=== PATIENT | male | born 1985 | race Caucasian/White ===

== ENCOUNTER 2019-04-01 20:39 | Emergency (ER) | payer SELFPAY ==
[2019-04-01] MEDS ORDERED: dexAMETHasone 10 MG/ML VIAL ONE (21:06)
[2019-04-01] MEDS ORDERED: METOCLOPRAMIDE 10 MG/2mL INJ ONE (21:06)
[2019-04-01] MEDS ORDERED: NA CHLORIDE 0.9% 1,000 ML ONE (21:07)
[2019-04-01] MEDS ORDERED: ONDANSETRON 4 MG/2 ML VIAL ONE (21:07)
[2019-04-01] MEDS ORDERED: DIPHENHYDRAMINE 50 MG/ML VIAL ONE (21:07)
[2019-04-01 21:23] LABS: Absolute Lymphocytes (CBC) 2.3 K/uL (0.7-4.9); Basophils % 0.6 % (0-1.3); Hematocrit 43.4 % (39.6-49.0); Lymphocytes % 31.9 % (15.3-44.8); MPV 10.6 fL (7.6-11.3); RBC Red Blood Cell Count 4.87 M/uL (4.33-5.43)
[2019-04-01 21:29] LABS: Protime INR 0.96
[2019-04-01 21:43] LABS: Magnesium 2.3 mg/dL (1.8-2.4); Potassium 4.2 mmol/L (3.5-5.1)
--- NOTE | 2019-04-01 22:25 | ER ---
Nurse's Notes [facility] Name: Fartun Mcclure Age: 33 yrs Sex: Male : 1985 Arrival Date: 04/01/2019 Time: 20:42 Bed 5 Private MD: Jerry Ohara H Diagnosis: Headache;Elevated blood-pressure reading, without diagnosis of hypertension Presentation: 04/01 20:56 Presenting complaint: Patient states: "Today I went to Urgent care because I have been tr5 having headaches for the past 2-3 weeks and L ear pain. At urgent care I was told that I had high blood pressure. I use to take medicine for my high blood pressure, but stopped taking it because there were too many negative side effects.". Transition of care: patient was not received from another setting of care. Onset of symptoms was April 01, 2019. Risk Assessment: Do you want to hurt yourself or someone else? Patient reports no desire to harm self or others. Initial Sepsis Screen: Does the patient meet any 2 criteria? Systolic BP < 90 mmHg. No. Patient's initial sepsis screen is negative. Does the patient have a suspected source of infection? No. Patient's initial sepsis screen is negative. Care prior to arrival: None. 20:56 Method Of Arrival: Ambulatory tr5 20:56 Acuity: NAFISA 3 tr5 Triage Assessment: 20:59 Headache History: The patient has had previous headaches and this one is similar to tr5 previous episodes. General:. 22:38 General: Appears in no apparent distress. Pain: Also complains of. tr5 Historical: - Allergies: 20:59 No Known Allergies; tr5 - Home Meds: 20:59 None [Active]; tr5 - PMHx: 20:59 Hypertension; tr5 - PSHx: 20:59 Vasectomy; tr5 - Immunization history:: Adult Immunizations up to date. - Social history:: Smoking status: Patient/guardian denies using tobacco, never smoked. - Ebola Screening: : No symptoms or risks identified at this time. Screenin:00 Abuse screen: Denies threats or abuse. Nutritional screening: No deficits noted. tr5 Tuberculosis screening: No symptoms or risk factors identified. Fall Risk None identified. Assessment: 21:00 General: Appears in no apparent distress. Behavior is calm, cooperative. Pain: tr5 Complains of pain in face and left ear. Pain: Pain does not radiate. Pain currently is 5 out of 10 on a pain scale. Quality of pain is described as aching, Pain began 2-3 weeks ago. Neuro: Level of Consciousness is awake, alert, obeys commands, Oriented to person, place, time, situation, Corporate Attorney are equal bilaterally Moves all extremities. Gait is steady. Cardiovascular: Heart tones present Capillary refill < 3 seconds Pulses are all present. Edema is absent. Respiratory: Airway is patent Respiratory effort is even, unlabored, Respiratory pattern is regular, symmetrical. GI: No signs and/or symptoms were reported involving the gastrointestinal system. GI:. : No signs and/or symptoms were reported regarding the genitourinary system. EENT: Ear canal clear on right ear and left ear. Derm: Skin is intact, Skin is dry. Musculoskeletal: Capillary refill < 3 seconds, Range of motion: intact in all extremities. 22:00 Reassessment: Patient and/or family updated on plan of care and expected duration. Pain tr5 level reassessed. Patient is alert, oriented x 3, equal unlabored respirations, skin warm/dry/pink. Patient states symptoms have improved. Vital Signs: 20:59 BP 169 / 115; Pulse 76; Resp 16; Temp 97.9(O); Pulse Ox 99% on R/A; Weight 90.72 kg; tr5 Height 5 ft. 6 in. (167.64 cm); 22:06 BP 135 / 99; Pulse 81; Resp 16; Pulse Ox 100% on R/A; tr5 20:59 Body Mass Index 32.28 (90.72 kg, 167.64 cm) tr5 ED Course: 20:42 Patient arrived in ED. am2 20:42 Jerry Ohara DO is Private Physician. am2 20:47 Michael Clement PA is PHCP. cp 20:47 Tashi Patterson MD is Attending Physician. cp 20:56 Iván Madrid, MARY JANE is Primary Nurse. tr5 20:58 Triage completed. tr5 20:59 Arm band placed on Patient placed. tr5 21:00 Placed in gown. Bed in low position. Call light in reach. home health billing specialist on. Pulse ox tr5 on. NIBP on. 21:09 EKG done, by ED staff. tr5 21:16 Inserted saline lock: 20 gauge in right antecubital area, using aseptic technique. jb5 Blood collected. 21:17 Basic Metabolic Panel Sent. jb5 21:17 CBC with Diff Sent. jb5 21:17 Magnesium Sent. jb5 21:17 PT-INR Sent. jb5 21:[address] via wheelchair. tr5 21:28 CT Head Brain wo Cont In Process Unspecified. EDMS 21:38 Awaiting radiology results. tr5 22:37 No provider procedures requiring assistance completed. IV discontinued. tr5 Administered Medications: 21:10 Drug: NS 0.9% 1000 ml Route: IV; Rate: 1 bolus; Site: right antecubital; tr5 21:12 Drug: Zofran 4 mg Route: IVP; Site: right antecubital; tr5 22:05 Follow up: Response: No adverse reaction tr5 21:15 Drug: Reglan 10 mg Route: IVP; Site: right antecubital; tr5 22:05 Follow up: Response: No adverse reaction; Marked relief of symptoms tr5 21:15 Drug: Decadron - Dexamethasone 10 mg Route: IVP; Site: right antecubital; tr5 22:05 Follow up: Response: No adverse reaction tr5 21:16 Drug: Benadryl 25 mg Route: IVP; Site: right antecubital; tr5 22:05 Follow up: Response: No adverse reaction; Marked relief of symptoms tr5 Outcome: 22:24 Discharge ordered by . brant 22:37 Discharged to home ambulatory. tr5 22:37 Condition: stable 22:37 Discharge instructions given to patient, Instructed on discharge instructions, follow up and referral plans. medication usage, Demonstrated understanding of instructions, follow-up care, medications. 22:38 Patient left the ED. tr5 Signatures: Dispatcher [employer] EDMS Michael Clement PA PA cp Broussard, Jennifer jb5 Alessia Gonzales Tommie, RN RN tr5
--- NOTE | 2019-04-01 22:25 | EDPHYS ---
Physician Documentation [facility] Name: Fartun Mcclure Age: 33 yrs Sex: Male : 1985 Arrival Date: 04/01/2019 Time: 20:42 Bed 5 Private MD: Jerry Ohara H ED Physician Tashi Patterson HPI: 04/01 20:56 This 33 yrs old Male presents to ER via Unassigned with complaints of cp Headache, High Blood Pressure. 20:56 The patient complains of pain to the left occipital area and left base of the skull. cp The patient describes the headache as aching. Onset: The symptoms/episode began/occurred 2 day(s) ago. 20:56 Associated signs and symptoms: Pertinent negatives: altered mental status, dizziness, cp fever, neck stiffness, Photophobia sinus congestion, sinus tenderness, vision changes, weakness. 20:56 Severity of symptoms: in the emergency department the pain a " 5" out of "10". cp 20:56 Patient reports intermittent headaches for past 2-3 weeks that start in back of head. cp Today's headache started 2 days ago. Patient reports history of hypertension in the past but stopping medication due to "side effects". Historical: - Allergies: 20:59 No Known Allergies; tr5 - Home Meds: 20:59 None [Active]; tr5 - PMHx: 20:59 Hypertension; tr5 - PSHx: 20:59 Vasectomy; tr5 - Immunization history:: Adult Immunizations up to date. - Social history:: Smoking status: Patient/guardian denies using tobacco, never smoked. - Ebola Screening: : No symptoms or risks identified at this time. ROS: 21:00 Constitutional: Negative for body aches, chills, fever, poor PO intake. cp 21:00 Eyes: Negative for injury, pain, redness, and discharge. cp 21:00 ENT: Negative for drainage from ear(s), ear pain, sinus congestion, sinus pain, sore throat, difficulty swallowing, difficulty handling secretions. 21:00 Neck: Negative for pain with movement, pain at rest, stiffness. 21:00 Cardiovascular: Negative for chest pain, edema, palpitations. 21:00 Respiratory: Negative for cough, shortness of breath, wheezing. 21:00 Abdomen/GI: Negative for abdominal pain, nausea, vomiting, and diarrhea, black/tarry stool, rectal bleeding. 21:00 Back: Negative for pain at rest, pain with movement, radiated pain. 21:00 : Negative for urinary symptoms. 21:00 Skin: Negative for rash. 21:00 Neuro: Positive for headache, Negative for altered mental status, dizziness, syncope, weakness. 21:00 All other systems are negative. Exam: 21:10 Constitutional: The patient appears in no acute distress, alert, awake, cp non-diaphoretic, non-toxic, well developed, well nourished. 21:10 Head/Face: Normocephalic, atraumatic. Eyes: Pupils equal round and reactive to light, cp extra-ocular motions intact. Lids and lashes normal. Conjunctiva and sclera are non-icteric and not injected. Cornea within normal limits. Periorbital areas with no swelling, redness, or edema. ENT: Nares patent. No nasal discharge, no septal abnormalities noted. Tympanic membranes are normal and external auditory canals are clear. Oropharynx with no redness, swelling, or masses, exudates, or evidence of obstruction, uvula midline. Mucous membranes moist. Neck: Trachea midline, no thyromegaly or masses palpated, and no cervical lymphadenopathy. Supple, full range of motion without nuchal rigidity, or vertebral point tenderness. No Meningismus. Chest/axilla: Normal chest wall appearance and motion. Nontender with no deformity. No lesions are appreciated. Cardiovascular: Regular rate and rhythm with a normal S1 and S2. No gallops, murmurs, or rubs. Normal PMI, no JVD. No pulse deficits. Respiratory: Lungs have equal breath sounds bilaterally, clear to auscultation and percussion. No rales, rhonchi or wheezes noted. No increased work of breathing, no retractions or nasal flaring. Abdomen/GI: Soft, non-tender, with normal bowel sounds. No distension or tympany. No guarding or rebound. No evidence of tenderness throughout. Skin: Warm, dry with normal turgor. Normal color with no rashes, no lesions, and no evidence of cellulitis. Neuro: Awake and alert, GCS 15, oriented to person, place, time, and situation. Cranial nerves II-XII grossly intact. Motor strength 5/5 in all extremities. Sensory grossly intact. Cerebellar exam normal. Normal gait. 21:15 ECG was reviewed by the Attending Physician. cp Vital Signs: 20:59 BP 169 / 115; Pulse 76; Resp 16; Temp 97.9(O); Pulse Ox 99% on R/A; Weight 90.72 kg; tr5 Height 5 ft. 6 in. (167.64 cm); 22:06 BP 135 / 99; Pulse 81; Resp 16; Pulse Ox 100% on R/A; tr5 20:59 Body Mass Index 32.28 (90.72 kg, 167.64 cm) tr5 MDM: 20:52 Patient medically screened. cp 22:10 ED course: Head-CT negative for acute findings. cp 22:23 Data reviewed: vital signs, nurses notes, lab test result(s), EKG, radiologic studies, cp CT scan. 22:23 Differential diagnosis: cluster headache, cerebral vascular accident, intracerebral cp hemorrhage, migraine, neoplasm, subarachnoid bleed, subdural hematoma, tension headache. Test interpretation: by ED physician or midlevel provider: ECG. Counseling: I had a detailed discussion with the patient and/or guardian regarding: the historical points, exam findings, and any diagnostic results supporting the discharge/admit diagnosis, lab results, radiology results, the need for outpatient follow up, a family practitioner, to return to the emergency department if symptoms worsen or persist or if there are any questions or concerns that arise at home. Response to treatment: the patient's symptoms have markedly improved after treatment, and as a result, I will discharge patient. 22:23 ED course: VSS. Blood pressure and headache improved. Will discharge to home for cp continued monitoring. 04/01 20:58 Order name: Basic Metabolic Panel; Complete Time: 21:45 cp 04/01 21:45 Interpretation: Normal except: CL 108; GFR 74. cp 04/01 20:58 Order name: CBC with Diff; Complete Time: 21:45 cp 04/01 21:45 Interpretation: Reviewed. cp 04/01 20:58 Order name: Magnesium; Complete Time: 21:45 cp 04/01 20:58 Order name: PT-INR; Complete Time: 21:45 cp 04/01 20:58 Order name: CT Head Brain wo Cont cp 04/01 20:58 Order name: EKG; Complete Time: 20:59 cp 04/01 20:58 Order name: Cardiac monitoring; Complete Time: 21:03 cp 04/01 20:58 Order name: EKG - Nurse/Tech; Complete Time: 21:09 cp 04/01 20:58 Order name: IV Saline Lock; Complete Time: 21:34 cp 04/01 20:58 Order name: Labs collected and sent; Complete Time: 21:34 cp 04/01 20:58 Order name: O2 Per Protocol; Complete Time: 21:02 cp 04/01 20:58 Order name: O2 Sat Monitoring; Complete Time: 21:02 cp EC:15 Rate is 66 beats/min. Rhythm is regular. [place] interval is normal. QRS interval is normal. cp QT interval is normal. Interpreted by me. Reviewed by me. Administered Medications: 21:10 Drug: NS 0.9% 1000 ml Route: IV; Rate: 1 bolus; Site: right antecubital; tr5 21:12 Drug: Zofran 4 mg Route: IVP; Site: right antecubital; tr5 22:05 Follow up: Response: No adverse reaction tr5 21:15 Drug: Reglan 10 mg Route: IVP; Site: right antecubital; tr5 22:05 Follow up: Response: No adverse reaction; Marked relief of symptoms tr5 21:15 Drug: Decadron - Dexamethasone 10 mg Route: IVP; Site: right antecubital; tr5 22:05 Follow up: Response: No adverse reaction tr5 21:16 Drug: Benadryl 25 mg Route: IVP; Site: right antecubital; tr5 22:05 Follow up: Response: No adverse reaction; Marked relief of symptoms tr5 Disposition: 04/02 04:20 Co-signature as Attending Physician, Tashi Patterson MD I agree with the assessment and kdr plan of care. Disposition: 04/01/19 22:24 Discharged to Home. Impression: Headache, Elevated blood-pressure reading, without diagnosis of hypertension. - Condition is Stable. - Discharge Instructions: General Headache Without Cause, How to Take Your Blood Pressure, [id number], Form - Blood Pressure Record Sheet. - Prescriptions for Fiorinal 50- 325-40 mg Oral Capsule - take 1 capsule by ORAL route every 4 hours As needed - not to exceed 6 capsules per day; 20 capsule. Ibuprofen 800 mg Oral Tablet - take 1 tablet by ORAL route every 8 hours As needed take with food; 30 tablet. - Medication Reconciliation Form, Thank You Letter, Antibiotic Education, Prescription Opioid Use form. - Follow up: Private Physician; When: 2 - 3 days; Reason: Recheck today's complaints. - Problem is new. - Symptoms have improved. Signatures: Dispatcher [employer] EDMS Tashi Patterson MD MD kdr Michael Clement PA PA cp Iván Madrid RN RN tr5 Corrections: (The following items were deleted from the chart) 04/01 22:38 22:24 04/01/2019 22:24 Discharged to Home. Impression: Headache; Elevated tr5 blood-pressure reading, without diagnosis of hypertension. Condition is Stable. Forms are Medication Reconciliation Form, Thank You Letter, Antibiotic Education, Prescription Opioid Use. Follow up: Private Physician; When: 2 - 3 days; Reason: Recheck today's complaints. Problem is new. Symptoms have improved. cp
--- NOTE | 2019-04-02 07:14 | EKG ---
Test Date: 2019-04-01 Test Time: 21:08:14 Embroidery Specialist: KIM MEASUREMENT RESULTS: Intervals: Rate: 66 [place]: 162 QRSD: 92 QT: 378 QTc: 396 [place]: P: 19 [place]: 162 QRS: -5 T: -1 INTERPRETIVE STATEMENTS: Normal sinus rhythm Normal ECG No previous ECG available for comparison Electronically Signed On 04-02-19 07:13:13 CDT by Bacilio Mosley
--- NOTE | 2019-04-02 10:19 | RAD REPORT ---
EXAM DESCRIPTION: CT - Head Brain Wo Cont - 04/02/2019 2:06 am CLINICAL HISTORY: HEADACHE . COMPARISON: None Available. TECHNIQUE: Contiguous axial sections are obtained as per protocol. Sagittal and coronal reformations are submitted Automatic exposure control (AEC), mA and/or kV adjustment by patient size, and/or iterative reconstru ctive technique was used, per departmental dose optimization program, during the performance of the C T examination. FINDINGS: Ventricles, sulci and cisterns appear normal. Normal kwok-white matter differentiation i s noted. No evidence of intra or extra-axial hemorrhage, hematoma, mass, mass effect or midline shift is noted. The posterior fossa structures appear normal. The bony calvarium appears intact. The soft tissues of the scalp appear unremarkable. Normal appearance of the orbits are noted. The paranasal sinuses and mastoids appear normal. IMPRESSION: Unremarkable non contrast enhanced CT examination of brain. Electronically signed by: Pilar Hunt MD 04/01/2019 9:55 PM CDT Due to temporary technical issues with the PACS/Fluency reporting system, reports are being signed by the in house radiologist as a courtesy to ensure prompt reporting. The interpreting radiologist is f ully responsible for the content of the report.
== END 2019-04-01 22:38 | disposition home or self-care (01) ==
LOC: ER 20:39
DX: R03.0 Elevated blood-pressure reading, without diagnosis of hypertension (principal); I10 Essential (primary) hypertension
CPT/HCPCS: 36415; 70450; 80048; 83735; 85025; 85610; 93005; 96374; 96375; 99285; J1100; J2405; J2765; J7030